=== PATIENT | male | born 1980 | race Caucasian/White ===

== ENCOUNTER 2020-11-28 16:08 | Emergency (ER) | payer SELFPAY ==
--- NOTE | 2020-11-28 16:25 | Event Note ---
ED Screening Note Date of service: 11/28/20 Time: 16:24 ED Screening Note: Patient presents with complaints of sudden onset of nausea, vomiting/diarrhea, body aches and chills starting last night Denies any cough or chest pain, he admits to mild abdominal pain that he rates as a 3/10 in severity History of HIV, states compliance with ART This initial assessment/diagnostic orders/clinical plan/treatment(s) is/are subject to change based on patients health status, clinical progression and re- assessment by fellow clinical providers in the ED. Further treatment and workup at subsequent clinical providers discretion. Patient/guardian urged not to elope from the ED as their condition may be serious if not clinically assessed and managed. Initial orders include: Charge nurse informed of sepsis Labs meds sepsis protocol
[2020-11-28] MEDS ORDERED: ACETAMINOPHEN 500 MG TAB PO STA (16:38)
[2020-11-28] MEDS ORDERED: SODIUM CHLORIDE 0.9% 1000 ML IV SOLN IV ONE (16:45)
[2020-11-28 16:51] LABS: Basophils # (Auto) 0.1 K/mm3 (0.0-0.1); Basophils % (Auto) 0.3 % (0.0-1.8); Hematocrit 43.5 % (35.5-45.6); Hemoglobin 14.6 gm/dl (11.8-15.2); Lymphocytes # (Auto) 0.9 K/mm3 (1.2-5.4); Lymphocytes % (Auto) 4.5 % (13.4-35.0); Mean Corpuscular HGB Conc 34 % (32-34); Mean Corpuscular Volume 93 fl (84-94); Monocytes # (Auto) 1.8 K/mm3 (0.0-0.8); Monocytes % (Auto) 9.6 % (0.0-7.3); Platelet Count 204 K/mm3 (140-440); Red Blood Count 4.66 M/mm3 (3.65-5.03); Red Cell Distribution Width 13.3 % (13.2-15.2)
[2020-11-28] MEDS ORDERED: ONDANSETRON 4 MG/2 ML INJ IV ONE (17:00)
[2020-11-28 17:14] LABS: Albumin 4.5 g/dL (3.9-5); Calcium 9.3 mg/dL (8.4-10.2)
--- NOTE | 2020-11-28 17:44 | Emergency Department Report ---
ED General Adult HPI - General Chief complaint: Fever Stated complaint: Diarrhea, cramping, body aches PUI?: Yes Time Seen by Provider: 11/28/20 17:14 Source: patient, RN notes reviewed Mode of arrival: Ambulatory Limitations: No Limitations - History of Present Illness Initial comments: The patient was evaluated in the emergency department for symptoms described in the history of present illness. He/she was evaluated in the context of the global COVID-19 pandemic, which necessitated consideration that the patient might be at risk for infection with the virus that causes COVID-19. Institutional protocols and algorithms that pertain to the evaluation of patients at risk for COVID-19 are in a state of rapid change based on information released by regulatory bodies including the CDC and federal and state organizations. These policies and algorithms were followed during the patient's care in the emergency department. Please note that these policies, procedures and recommendations changed on a rapid basis. The patient is a 40-year-old gentleman. He reports that he has a history of HIV positive, and he is currently on antiviral therapy, deskavoy. He reports that he has an undetectable viral load, and denies a history of AIDS defining conditions. He also reports that he is up-to-date with COVID-19 vaccination. The patient reports he was in his usual state of health up till yesterday evening, when he consumed some rice and jerked chicken, which had been a day or 2 old. He is the only one who ate this food. Shortly after eating this food, he developed abdominal cramping, and diffuse diarrhea, fever, chills, and body aches. To me, he denies headache, neck pain, chest pain, shortness of breath, vomiting, testicular pain, urinary symptoms. He denies loss of taste and smell. In the emergency room, he is given fluids, Tylenol, and Toradol, which much improved his symptoms. He denies exposure to Covid positive individuals, as well as to those who may have influenza. During the entire history and physical examination, I had on complete personal protective equipment. -: Gradual, hour(s), days(s) Location: back, left, right, upper extremity, lower extremity Severity scale (0 -10): 10 Improves with: movement, rest - Related Data Allergies Allergy/AdvReac Type Severity Reaction Status Date / Time methylprednisolone Allergy Hives Verified 11/28/20 16:33 sulfamethoxazole Allergy Hives Verified 11/28/20 16:33 [From Bactrim] trimethoprim [From Bactrim] Allergy Hives Verified 11/28/20 16:33 ED Review of Systems ROS: Stated complaint: HEADACHE,FEVER,ACHES CHEST TIGHTNESS Other details as noted in HPI Constitutional: chills, fever, malaise, weakness Eyes: denies: eye discharge ENT: denies: epistaxis Respiratory: denies: cough Cardiovascular: denies: chest pain Gastrointestinal: diarrhea. denies: abdominal pain, nausea, vomiting Genitourinary: denies: dysuria Musculoskeletal: arthralgia, myalgia Neurological: weakness. denies: headache Hematological/Lymphatic: denies: easy bleeding ED Past Medical Hx - Past Medical History Previous Medical History?: No - Surgical History Past Surgical History?: No ED Physical Exam - General Limitations: No Limitations General appearance: alert, in no apparent distress - Head Head exam: Present: atraumatic, normocephalic - Eye Eye exam: Present: normal appearance, EOMI. Absent: nystagmus - ENT ENT exam: Present: normal exam, normal orophraynx, mucous membranes moist, normal external ear exam - Neck Neck exam: Present: normal inspection, full ROM. Absent: tenderness, meningismus - Respiratory Respiratory exam: Present: other (Pulmonary auscultation not performed secondary to lack of disposable stethoscope). 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 Absent: bradycardia, irregular rhythm - GI/Abdominal GI/Abdominal exam: Present: soft. Absent: distended, tenderness, guarding, rebound, rigid, pulsatile mass - Rectal Rectal exam: Present: deferred - Extremities Exam Extremities exam: Present: normal inspection, full ROM, other (2+ pulses noted in the bilateral upper and lower extremities. There is no palpable cord. negative Homans sign. Muscular compartments are soft. The pelvis is stable.). Absent: pedal edema, calf tenderness - Back Exam Back exam: Present: normal inspection, full ROM. Absent: tenderness, CVA tenderness (R), CVA tenderness (L), paraspinal tenderness, vertebral tenderness - Neurological Exam Neurological exam: Present: alert, oriented X3, other (No facial droop. Tongue midline. Extraocular movements intact bilaterally. Facial sensation intact to light touch in V1, V2, V3 distribution bilaterally. 5 and a 5 strength in 4 extremities. Sensation intact to light touch in 4 extremities.). Absent: motor sensory deficit - Psychiatric Psychiatric exam: Present: normal affect, normal mood - Skin Skin exam: Present: warm, dry, intact, normal color. Absent: rash ED Course Vital Signs 11/28/20 11/28/20 11/28/20 16:34 18:13 18:50 Temperature 103.1 F H 103.2 F H Pulse Rate 117 H 102 H 104 H Respiratory 16 19 20 Rate Blood Pressure Blood Pressure 90/42 96/50 92/44 [Right] O2 Sat by Pulse 96 99 99 Oximetry 11/28/20 11/28/20 11/28/20 22:01 22:16 22:30 Temperature Pulse Rate 105 H 92 H Respiratory 18 20 Rate Blood Pressure 70/50 103/69 Blood Pressure [Right] O2 Sat by Pulse 90 100 100 Oximetry 11/28/20 11/28/20 11/28/20 22:46 22:49 23:00 Temperature Pulse Rate 89 95 H 105 H Respiratory 26 H 27 H 26 H Rate Blood Pressure 108/60 108/60 103/69 Blood Pressure [Right] O2 Sat by Pulse 100 100 100 Oximetry 11/28/20 11/28/20 11/28/20 23:02 23:16 23:30 Temperature Pulse Rate 96 H 96 H 98 H Respiratory 26 H 23 32 H Rate Blood Pressure 132/77 130/80 132/77 Blood Pressure [Right] O2 Sat by Pulse 100 98 100 Oximetry - Reevaluation(s) Reevaluation #1: 11/28/20 19:44 Differential diagnosis, including but not limited to: Enteritis, viral syndrome, food poisoning, COVID-19 vaccinated Assessment and plan: 40-year-old gentleman, who is on antiviral therapy, reports undetectable viral load, COVID-19 vaccinated, presenting with acute diarrheal illness in the context of recently consuming chicken and rice, I suspect food poisoning. I appreciate that this patient has a fever and tachycardia as well as relative hypotension upon his arrival. However, with aggressive fluid resuscitation, his blood pressure is now 105 systolic, his tachycardia is resolved, and he appears quite comfortable. His skin, throat exam are unremarkable, there is no sinus tenderness or meningeal signs, he reports that he is COVID-19 vaccinated, denies loss of taste and smell, his abdomen is soft and benign, and he is no respiratory distress. Chest x-ray is unremarkable. Laboratory studies were ordered prior to my personal evaluation of this patient. Leukocytosis is expected, given of presumed underlying viral illness. I do not suspect invasive bacterial illness at this time, nor do I suspect an acutely surgical condition at this time. Flu swab urinalysis pending, we will continue to resuscitate the patient. Explained natural history of foodborne illnesses to this patient. He has articulated understanding. Anticipate discharge presuming vital signs continue to remain normalized. Care will be transferred to the oncoming ER physician, Dr Satya Peña to follow-up on flu swab, urinalysis, and final reassessment after completion of IV fluid resuscitation. I discussed this plan of care with the patient. He is agreeable to this plan of care. COVID-19 is unlikely, given lack of respiratory symptoms, the fact that the patient has been vaccinated, and that he is has no hypoxia at this time 12/02/20 06:37 ED Medical Decision Making - Lab Data Result diagrams: 11/28/20 16:38 11/28/20 16:38 Vital Signs 11/28/20 11/28/20 11/28/20 16:34 18:13 18:50 Temperature 103.1 F H 103.2 F H Pulse Rate 117 H 102 H 104 H Respiratory 16 19 20 Rate Blood Pressure 90/42 96/50 92/44 [Right] O2 Sat by Pulse 96 99 99 Oximetry Lab Results 11/28/20 11/28/20 11/28/20 Range/Units 16:38 16:38 16:38 WBC 19.2 H (4.5-11.0) K/mm3 RBC 4.66 (3.65-5.03) M/mm3 Hgb 14.6 (11.8-15.2) gm/dl Hct 43.5 (35.5-45.6) % MCV 93 (84-94) fl MCH 31 (28-32) pg MCHC 34 (32-34) % RDW 13.3 (13.2-15.2) % Plt Count 204 (140-440) K/mm3 Lymph % (Auto) 4.5 L (13.4-35.0) % Tyler % (Auto) 9.6 H (0.0-7.3) % Eos % (Auto) 0.0 (0.0-4.3) % Baso % (Auto) 0.3 (0.0-1.8) % Lymph # (Auto) 0.9 L (1.2-5.4) K/mm3 Tyler # (Auto) 1.8 H (0.0-0.8) K/mm3 Eos # (Auto) 0.0 (0.0-0.4) K/mm3 Baso # (Auto) 0.1 (0.0-0.1) K/mm3 Seg Neutrophils % 85.6 H (40.0-70.0) % Seg Neutrophils # 16.5 H (1.8-7.7) K/mm3 Sodium 134 L (137-145) mmol/L Potassium 4.1 (3.6-5.0) mmol/L Chloride 99.5 (98-107) mmol/L Carbon Dioxide 24 (22-30) mmol/L Anion Gap 15 mmol/L BUN 15 (9-20) mg/dL Creatinine 1.5 H (0.8-1.3) mg/dL Estimated GFR 51 ml/min BUN/Creatinine Ratio 10 % Glucose 135 H (75-100) mg/dL Lactic Acid 2.00 (0.7-2.0) mmol/L Calcium 9.3 (8.4-10.2) mg/dL Magnesium (1.7-2.3) mg/dL Total Bilirubin 0.60 (0.1-1.2) mg/dL AST 23 (5-40) units/L ALT 26 (7-56) units/L Alkaline Phosphatase 72 (35-129) units/L Total Creatine Kinase (55-170) units/L Total Protein 8.1 (6.3-8.2) g/dL Albumin 4.5 (3.9-5) g/dL Albumin/Globulin Ratio 1.3 % 11/28/20 Range/Units 16:38 WBC (4.5-11.0) K/mm3 RBC (3.65-5.03) M/mm3 Hgb (11.8-15.2) gm/dl Hct (35.5-45.6) % MCV (84-94) fl MCH (28-32) pg MCHC (32-34) % RDW (13.2-15.2) % Plt Count (140-440) K/mm3 Lymph % (Auto) (13.4-35.0) % Tyler % (Auto) (0.0-7.3) % Eos % (Auto) (0.0-4.3) % Baso % (Auto) (0.0-1.8) % Lymph # (Auto) (1.2-5.4) K/mm3 Tyler # (Auto) (0.0-0.8) K/mm3 Eos # (Auto) (0.0-0.4) K/mm3 Baso # (Auto) (0.0-0.1) K/mm3 Seg Neutrophils % (40.0-70.0) % Seg Neutrophils # (1.8-7.7) K/mm3 Sodium (137-145) mmol/L Potassium (3.6-5.0) mmol/L Chloride (98-107) mmol/L Carbon Dioxide (22-30) mmol/L Anion Gap mmol/L BUN (9-20) mg/dL Creatinine (0.8-1.3) mg/dL Estimated GFR ml/min BUN/Creatinine Ratio % Glucose (75-100) mg/dL Lactic Acid (0.7-2.0) mmol/L Calcium (8.4-10.2) mg/dL Magnesium 1.30 L (1.7-2.3) mg/dL Total Bilirubin (0.1-1.2) mg/dL AST (5-40) units/L ALT (7-56) units/L Alkaline Phosphatase (35-129) units/L Total Creatine Kinase 348 H (55-170) units/L Total Protein (6.3-8.2) g/dL Albumin (3.9-5) g/dL Albumin/Globulin Ratio % - Radiology Data Radiology results: pending, report reviewed, image reviewed CHEST 1 VIEW 11/28/2020 5:04 PM INDICATION / CLINICAL INFORMATION: flu like symptoms. COMPARISON: None available. FINDINGS: SUPPORT DEVICES: None. HEART / MEDIASTINUM: No significant abnormality. LUNGS / PLEURA: No significant pulmonary or pleural abnormality. No pneumothorax. ADDITIONAL FINDINGS: No significant additional findings. IMPRESSION: 1. No acute findings. Signer Name: Drew Dias DO Signed: 11/28/2020 5:19 PM Workstation Name: [id number] Critical care attestation.: If time is entered above; I have spent that time in minutes in the direct care of this critically ill patient, excluding procedure time. ED Disposition Clinical Impression: Acute febrile illness, Enteritis, COVID-19 vaccine administered Disposition: HOME / SELF CARE / HOMELESS Is pt being admited?: No Does the pt Need Aspirin: No Condition: Good Additional Instructions: As we discussed, we suspect that the patient has foodborne illness/food pois oning. Advance diet as tolerated. Drink 6 to 8 cups of water per day. The patient may also consume Pedialyte, or Gatorade mixed with water, 50/50 ratio. Consume plenty of fiber, vegetables, lean protein, and advance diet to include bread, rice, apples and toast. Patient should take Tylenol every 4-6 hours as needed for fever, chills, and physical pain, alternating with ibuprofen, [id number], every 6 hours as needed for physical pain. Cultures were sent today, and results will be available in the next 5 to 7 days. Have your primary care doctor contact the medical records department to obtain culture results. Please wash hands with soap and water frequently, thoroughly and often, and especially before handling food. Please follow-up with your primary care doctor within the next 3 to 5 days for repeat checkup and evaluation. Please return to the emergency room right away with new pain, worsened pain, migration of pain, projectile vomiting, change in mental status, confusion, inability to tolerate liquid feeds, new, worsened or different symptoms not present on the initial emergency room evaluation. Referrals: [facility] [Provider Group] - 3-5 Days Forms: Work/School Release Form(ED)
[2020-11-28] MEDS ORDERED: KETOROLAC 30 MG/1 ML INJ IV ONE (18:17)
[2020-11-28] MEDS ORDERED: LACTATED RINGERS 1,000 ML IV ONE ×2 (18:18→22:30)
--- NOTE | 2020-11-28 18:23 | XRay Report ---
CHEST 1 VIEW 11/28/2020 5:04 PM INDICATION / CLINICAL INFORMATION: flu like symptoms. COMPARISON: None available. FINDINGS: SUPPORT DEVICES: None. HEART / MEDIASTINUM: No significant abnormality. LUNGS / PLEURA: No significant pulmonary or pleural abnormality. No pneumothorax. ADDITIONAL FINDINGS: No significant additional findings. IMPRESSION: 1. No acute findings. Signer Name: Drew Dias DO Signed: 11/28/2020 6:19 PM Workstation Name: [id number]
[2020-11-28] MEDS ORDERED: MAGNESIUM OXIDE 400 MG TAB PO STA (19:00)
[2020-11-28 20:50] LABS: Color,Urine Yellow (Yellow)
[2020-11-28 20:51] LABS: Bilirubin,Urine Negative (Negative); Blood,Urine Trace (Negative); Urobilinogen,Urine < 2.0 mg/dL (<2.0)
[2020-11-28 21:02] LABS: Mucus,Urine FEW /HPF
[2020-11-29 00:59] VITALS: BP 132/77
== END 2020-11-28 20:00 | disposition home or self-care (01) ==
LOC: ED 16:08
DX: K29.70 Gastritis, unspecified, without bleeding (principal); Z23 Encounter for immunization; Z88.8 Allergy status to other drugs, medicaments and biological substances; Z88.2 Allergy status to sulfonamides; Z79.899 Other long term (current) drug therapy
CPT/HCPCS: 36415; 71045; 80053; 81001; 82140; 82550; 83735; 85025; 87400; 96361; 96374; 96375; 99284; J1885; J2405; J7030; J7120